=== PATIENT | male | born 1990 | race Caucasian/White ===

== ENCOUNTER 2019-05-29 10:39 | Emergency (ER) | payer SELFPAY ==
[~2019-05-29] VITALS: Ht 175.3 cm; Wt 113.6 kg
[2019-05-29 10:42] VITALS: BP 125/69; PULSE 84; RESP 18; Ht 175.3 cm; Wt 113.6 kg
== END 2019-05-29 12:40 | disposition home or self-care (01) ==
LOC: FTE 10:39
DX: S01.81XA Laceration without foreign body of other part of head, initial encounter (principal); W22.8XXA Striking against or struck by other objects, initial encounter; Y92.810 Car as the place of occurrence of the external cause